=== PATIENT | male | born 1940 | race Caucasian/White ===

== ENCOUNTER 2016-07-25 13:09 | Observation (INO) | payer MEDICARE ==
[~2016-07-25] VITALS: Ht 175.3 cm; Wt 40.9 kg
[2016-07-25] MEDS ORDERED: LACTATED RINGERS 1,000 ML IV SCH (14:37)
[2016-07-25 14:40] VITALS: BP 114/75
[2016-07-25] MEDS ORDERED: DUTA1CPM PO (14:57)
[2016-07-25] MEDS ORDERED: HYDR-3240 PO (14:57)
[2016-07-25] MEDS ORDERED: CIPR500T87 PO (14:57)
[2016-07-25] MEDS ORDERED: WARF5TAB PO (14:57)
[2016-07-25] MEDS ORDERED: TAMS-11 PO (14:57)
[2016-07-25] MEDS ORDERED: LISI5TAB7 PO (14:57)
[2016-07-25] MEDS ORDERED: ONDANSETRON 2MG/ML, 2ML ONE (16:12)
[2016-07-25] MEDS ORDERED: CEFAZOLIN 1,000 MG ONE (16:12)
[2016-07-25] MEDS ORDERED: SUCCINYLCHOLINE 20 MG/ML, 10ML ONE (16:12)
[2016-07-25] MEDS ORDERED: ROCURONIUM 10 MG/ML ONE (16:12)
[2016-07-25] MEDS ORDERED: GLYCOPYRROLATE 0.2MG/1ML ONE (16:12)
[2016-07-25] MEDS ORDERED: PROPOFOL 10 MG/ML, 20ML ONE (16:12)
[2016-07-25] MEDS ORDERED: NEOSTIGMINE 1 MG/ML, 10ML ONE (16:12)
[2016-07-25] MEDS ORDERED: FENTANYL PF 100 MCG/2ML ONE (16:17)
[2016-07-25] MEDS ORDERED: OXYcodone 5 MG/5 ML ORAL.SOL UDC PO PRN (16:30)
[2016-07-25] MEDS ORDERED: hydrALAzine 20 MG/ML, 1ML IV PRN (16:30)
[2016-07-25] MEDS ORDERED: ONDANSETRON 2MG/ML, 2ML IVPush PRN (16:30)
[2016-07-25] MEDS ORDERED: LABETALOL 5MG/ML, 20ML IV PRN (16:30)
[2016-07-25] MEDS ORDERED: HYDROmorphone 1 MG/ML, 1ML IV PRN (16:30)
[2016-07-25] MEDS ORDERED: FENTANYL PF 100 MCG/2ML IV PRN (16:30)
[2016-07-25] MEDS: D5%-LACTATED RINGERS 1,000 ML IV SCH (17:05)
[2016-07-25] MEDS ORDERED: OPIUM/BELLADONNA SUPP.RECT 16.2-30 MG PR PRN (17:30)
[2016-07-25] MEDS ORDERED: HYDROcodone/APAP 5/325 TABLET PO ONE (17:30)
[2016-07-25] MEDS ORDERED: ONDANSETRON 2MG/ML, 2ML IV PRN (17:30)
[2016-07-25] MEDS ORDERED: TEMAZEPAM 15 MG CAPSULE PO PRN (17:30)
[2016-07-25 18:31] VITALS: BP 150/83
[2016-07-25 19:17] LABS: BLOOD UREA NITROGEN 30 mg/dL (7-18)
[2016-07-25 23:17] VITALS: BP 125/71
[2016-07-26] MEDS: D5%-LACTATED RINGERS 1,000 ML IV SCH (03:05)
[2016-07-26 03:06] VITALS: BP 101/64
[2016-07-26 07:05] VITALS: BP 139/78
[2016-07-26] MEDS ORDERED: CIPROFLOXACIN 500 MG TABLET PO SCH (09:00)
[2016-07-26] MEDS ORDERED: TAMSULOSIN 0.4 MG CAP.ER.24H PO SCH ×2 (09:00)
[2016-07-26] MEDS ORDERED: DUTASTERIDE 0.5 MG CAPSULE PO SCH ×2 (09:00)
[2016-07-26] MEDS ORDERED: LISINOPRIL 5 MG TABLET PO SCH (09:00)
[2016-07-26 09:20] VITALS: BP 94/61
== END 2016-07-26 12:20 | disposition home or self-care (01) ==
LOC: OUT 13:09 → ORIP 17:05 → 4NOR 18:25 → DCLOUNGE 07-26 12:20
PROVIDERS: ADMIT Urology; ATTEND Urology
DX: N40.1 Benign prostatic hyperplasia with lower urinary tract symptoms (principal); R33.8 Other retention of urine; N42.0 Calculus of prostate; N32.89 Other specified disorders of bladder
CPT/HCPCS: 36415; 52601; 80048; 82040; 85018; 85610; 88305; G0378; J0330; J0690; J2405; J2704; J2710; J3010; J7120; J3490

== ENCOUNTER 2016-11-27 11:40 | Inpatient (IN) | payer MEDICARE, MEDICAID ==
[~2016-11-27] VITALS: Ht 175.3 cm; Wt 58.6 kg
[~2016-11-27 11:40] MED LIST: CIPR500T87 PO; DUTA1CPM PO; HYDR-3240 PO; LISI5TAB7 PO; TAMS-11 PO; WARF5TAB PO
[2016-11-27] MEDS ORDERED: SODIUM CHLORIDE 0.9% 1,000 ML IV SCH (15:12)
[2016-11-27] MEDS ORDERED: ONDANSETRON ODT 4 MG PO PRN (15:30)
[2016-11-27] MEDS ORDERED: PLEASE ENTER HEIGHT AND WEIGHT MC SCH (15:30)
[2016-11-27] MEDS ORDERED: ONDANSETRON 2MG/ML, 2ML IVPush PRN (15:30)
[2016-11-27 15:40] LABS: HEMOGLOBIN 11.2 g/dL (13.7-18.0); WHITE BLOOD COUNT 13.4 x10^3/uL (3.4-10)
[2016-11-27 15:48] LABS: DIFF TOTAL CELLS COUNTED 100 CELL DIFF
[2016-11-27 15:53] LABS: BLOOD UREA NITROGEN 28 mg/dL (7-18)
[2016-11-27] MEDS: MORPHINE SULFATE 4 MG/ML, 1ML IVPush PRN (16:06)
[2016-11-27 16:33] LABS: VERIFY COUNTS? YES
[2016-11-27 16:36] LABS: ANISOCYTOSIS 1+; POIKILOCYTOSIS 1+
[2016-11-27 18:03] VITALS: BP 140/79
[2016-11-27] MEDS ORDERED: LEVOFLOXACIN/PMX 500MG/100ML 100 ML IV SCH (19:00)
[2016-11-27] MEDS: CEFEPIME 2 GM in DEXTROSE 5% 100 ML IV SCH (19:48)
[2016-11-27 20:16] VITALS: BP 122/71
[2016-11-28 03:08] VITALS: BP 95/62
[2016-11-28 05:04] LABS: HEMATOCRIT 33.5 % (39.2-51.8); HEMOGLOBIN 10.9 g/dL (13.7-18.0)
[2016-11-28 05:17] LABS: BLOOD UREA NITROGEN 34 mg/dL (7-18)
[2016-11-28 07:20] VITALS: BP 90/60
[2016-11-28] MEDS: CEFEPIME 2 GM in DEXTROSE 5% 100 ML IV SCH ×2 (07:45→19:58)
[2016-11-28] MEDS ORDERED: CALCIUM GLUCONATE 0.46MEQ/1ML IVPush ONE (09:30)
[2016-11-28] MEDS ORDERED: PHARMACY MAY ADJ FOR RENAL FX MC PRN (09:30)
[2016-11-28] MEDS ORDERED: SODIUM POLYSTYRENE SULFONATE ORAL SUSP PO ONE (10:00)
[2016-11-28] MEDS ORDERED: DEXTROSE 50%, 50ML SYRINGE IVPush ONE (10:00)
[2016-11-28] MEDS ORDERED: CALCIUM GLUCONATE 4.6 MEQ in SODIUM CHLORIDE 0.9% 50 ML IV ONE (10:00)
[2016-11-28] MEDS ORDERED: INSULIN REGULAR 100 UNITS/ML, 3ML VIAL IVPush ONE (10:00)
[2016-11-28] MEDS: SODIUM CHLORIDE 0.45% 1,000 ML IV SCH ×2 (10:16→19:58)
[2016-11-28 11:07] LABS: POTASSIUM,URINE RANDOM 34 mmol/L
[2016-11-28 13:12] VITALS: BP 94/50
[2016-11-28 14:23] LABS: BLOOD UREA NITROGEN 38 mg/dL (7-18)
[2016-11-28] MEDS ORDERED: SODIUM CHLORIDE 0.9% 1,000 ML IV SCH (15:12)
[2016-11-28] MEDS ORDERED: WARFARIN 5 MG TABLET PO-COUM ONE (18:00)
[2016-11-28 20:00] VITALS: BP 92/57
[2016-11-29 02:15] VITALS: BP 94/61
[2016-11-29] MEDS ORDERED: SODIUM CHLORIDE 0.9% 500 ML IV ONE ×2 (05:00→22:30)
[2016-11-29 05:41] LABS: HEMATOCRIT 36.2 % (39.2-51.8); HEMOGLOBIN 11.8 g/dL (13.7-18.0); WHITE BLOOD COUNT 12.5 x10^3/uL (3.4-10)
[2016-11-29 06:19] LABS: ASPARTATE AMINO TRANSFERASE 10 U/L (15-37); BLOOD UREA NITROGEN 40 mg/dL (7-18)
[2016-11-29 07:07] VITALS: BP 135/85
[2016-11-29] MEDS: CEFEPIME 2 GM in DEXTROSE 5% 100 ML IV SCH ×2 (08:56→20:51)
[2016-11-29] MEDS: SODIUM CHLORIDE 0.45% 1,000 ML IV SCH ×2 (13:00→23:00)
[2016-11-29 15:41] VITALS: BP 124/80
[2016-11-29] MEDS ORDERED: FENTANYL PF 100 MCG/2ML ONE (17:50)
[2016-11-29] MEDS ORDERED: BUPIVACAINE/PF 0.5% ONE (17:51)
[2016-11-29] MEDS ORDERED: WARFARIN 5 MG TABLET PO-COUM SCH (18:00)
[2016-11-29] MEDS ORDERED: PROPOFOL 10 MG/ML, 20ML ONE (18:16)
[2016-11-29] MEDS ORDERED: VASOPRESSIN 20 UNIT/ML, 1ML ONE (18:16)
[2016-11-29] MEDS ORDERED: PHENYLEPHRINE 10 MG/ML ONE (18:16)
[2016-11-29] MEDS ORDERED: SUCCINYLCHOLINE 20 MG/ML, 10ML ONE (18:16)
[2016-11-29] MEDS: MORPHINE SULFATE 4 MG/ML, 1ML IVPush PRN (20:51)
[2016-11-29] MEDS ORDERED: ALBUTEROL SULFATE 2.5 MG/3 ML ONE (20:56)
[2016-11-29] MEDS ORDERED: SODIUM CHLORIDE 0.9% 1,000 ML IV ONE (22:30)
[2016-11-29] MEDS: NOREPINEPHRINE 4 MG in SODIUM CHLORIDE 0.9% 246 ML IV PRN (23:55)
[2016-11-30 04:31] LABS: HEMATOCRIT 31.4 % (39.2-51.8); HEMOGLOBIN 10.3 g/dL (13.7-18.0); WHITE BLOOD COUNT 12.1 x10^3/uL (3.4-10)
[2016-11-30 04:40] LABS: BLOOD UREA NITROGEN 43 mg/dL (7-18)
[2016-11-30 04:53] LABS: ABG COLLECTION SITE ARTERIAL LINE
[2016-11-30] MEDS: MORPHINE SULFATE 4 MG/ML, 1ML IVPush PRN ×3 (06:08→23:49)
[2016-11-30] MEDS: CEFEPIME 2 GM in DEXTROSE 5% 100 ML IV SCH (10:59)
[2016-11-30] MEDS: SODIUM CHLORIDE 0.45% 1,000 ML IV SCH (12:00)
[2016-11-30] MEDS: SODIUM CHLORIDE 0.9% 1,000 ML IV SCH ×2 (12:40→22:40)
[2016-11-30] MEDS ORDERED: WARFARIN 5 MG TABLET PO-COUM SCH (18:00)
[2016-12-01] MEDS: NOREPINEPHRINE 4 MG in SODIUM CHLORIDE 0.9% 246 ML IV PRN (00:29)
[2016-12-01 05:18] LABS: ABG COLLECTION SITE NOT DOCUMENTED
[2016-12-01 05:33] LABS: HEMATOCRIT 35.7 % (39.2-51.8); HEMOGLOBIN 11.6 g/dL (13.7-18.0); WHITE BLOOD COUNT 11.7 x10^3/uL (3.4-10)
[2016-12-01 05:34] LABS: BLOOD UREA NITROGEN 44 mg/dL (7-18)
[2016-12-01] MEDS: MORPHINE SULFATE 4 MG/ML, 1ML IVPush PRN (09:14)
[2016-12-01] MEDS ORDERED: LORazepam 2 MG/ML, 1ML ONE (09:21)
[2016-12-01] MEDS ORDERED: BISACODYL 10 MG SUPP PR PRN (10:00)
[2016-12-01] MEDS ORDERED: SCOPOLAMINE PATCH, 1.5MG PATCH.TD72 TD PRN (10:00)
[2016-12-01] MEDS ORDERED: ATROPINE OPHTH SOLN 1%, 5ML BC PRN (10:00)
[2016-12-01] MEDS ORDERED: ACETAMINOPHEN 325 MG TABLET PO PRN (10:00)
[2016-12-01] MEDS ORDERED: ACETAMINOPHEN 650 MG SUPP PR PRN (10:00)
[2016-12-01] MEDS ORDERED: morphine SULFATE 10 MG/ML, 1ML IVPush PRN (10:00)
[2016-12-01] MEDS ORDERED: ONDANSETRON 2MG/ML, 2ML IV PRN (10:00)
[2016-12-01] MEDS ORDERED: LORazepam 2 MG/ML, 1ML IV PRN ×2 (10:00)
[2016-12-01] MEDS ORDERED: CEFEPIME 2 GM in DEXTROSE 5% 100 ML IV SCH (11:00)
[2016-12-01] MEDS ORDERED: BISACODYL 5 MG EC TABLET PO PRN (21:00)
[2016-12-01] MEDS ORDERED: SENNOSIDES 8.6 MG TABLET PO SCH (21:00)
[2016-12-01] MEDS ORDERED: DOCUSATE 100 MG CAPSULE PO SCH (21:00)
== END 2016-12-01 12:05 | disposition expired | DRG 711 ==
LOC: 4NOR 13:56 → CCU 11-29 20:31
PROVIDERS: ADMIT Internal Medicine; ATTEND Internal Medicine
PROC: 0T9B70Z Drainage of Bladder with Drainage Device, Via Natural or Artificial Opening (ICD-10-PCS; 2016-11-27)
PROC: 0VTB0ZZ Resection of Left Testis, Open Approach (ICD-10-PCS; principal; 2016-11-29 18:00)
DX: N45.3 Epididymo-orchitis (principal); E43 Unspecified severe protein-calorie malnutrition; J96.00 Acute respiratory failure, unspecified whether with hypoxia or hypercapnia; N17.9 Acute kidney failure, unspecified; E87.5 Hyperkalemia; C34.90 Malignant neoplasm of unspecified part of unspecified bronchus or lung; N39.0 Urinary tract infection, site not specified; J44.9 Chronic obstructive pulmonary disease, unspecified; J84.10 Pulmonary fibrosis, unspecified; I95.9 Hypotension, unspecified; N44.00 Torsion of testis, unspecified; B96.5 Pseudomonas (aeruginosa) (mallei) (pseudomallei) as the cause of diseases classified elsewhere; I12.9 Hypertensive chronic kidney disease with stage 1 through stage 4 chronic kidney disease, or unspecified chronic kidney disease; N43.3 Hydrocele, unspecified; R33.9 Retention of urine, unspecified; N40.0 Benign prostatic hyperplasia without lower urinary tract symptoms; D64.9 Anemia, unspecified; N18.9 Chronic kidney disease, unspecified; Z51.5 Encounter for palliative care; Z79.01 Long term (current) use of anticoagulants; Z85.3 Personal history of malignant neoplasm of breast; Z86.711 Personal history of pulmonary embolism; Z87.891 Personal history of nicotine dependence; Z90.10 Acquired absence of unspecified breast and nipple; Z90.2 Acquired absence of lung [part of]; Z98.42 Cataract extraction status, left eye; Z66 Do not resuscitate; N50.1 Vascular disorders of male genital organs
CPT/HCPCS: 36415; 36600; 71010; 76870; 80048; 80053; 81001; 82330; 82436; 82803; 82947; 82962; 84132; 84133; 84295; 84300; 85014; 85025; 85610; 87081; 87086; 88304; 93005; 93975; J0610; J1815; J1956; J2704; J3010; J3490; J0330; J2060; J2370; J7030; J7040; J7050